=== PATIENT | female | born 1940 | race Caucasian/White ===

== ENCOUNTER 2020-07-07 06:40 | Emergency (ER) | payer MEDICARE, OTHER, SELFPAY ==
[2020-07-07 06:45] VITALS: BP 179/75; PULSE 80; RESP 16; TEMP 36.5; O2SAT 97; BMI 25.6
--- NOTE | 2020-07-07 07:08 | ED.ABDPAIN ---
HPI - Abdominal Pain General Chief Complaint: Abdominal Pain Stated Complaint: constipation Time Seen by Provider: 07/07/20 06:47 Source: patient Mode of arrival: Ambulatory Limitations: no limitations History of Present Illness HPI narrative: Patient is an 79-year-old female presents with abdominal pain. She says it woke her from her sleep around 3:00 a.m.. At this happens frequently when she is on vacation she gets constipated. She tried walking around drinking water the cramps just intensified. She even threw up a few times which she says is normal when she gets this way. Since she has arrived in the emergency department she has had 2 bowel movements and overall feels back to normal and her pain is completely gone. She is now requesting laxatives to help make sure she goes completely. She was not sure if she could take 1 after of cholecystectomy which she had in December. MD complaint: abdominal pain Onset (ago): hour(s) Pain Consistency: intermittent Location: diffuse Severity: mild Quality: cramping Radiation: none Migration to: no migration Relieving factors: bowel movement Review of Systems Review of Systems Narrative: GENERAL: Denies chills, fatigue, malaise, fever, sweats, travel HEENT: Denies sinus pain, ear pain, sore throat, difficulty swallowing, neck pain RESPIRATORY: Denies dyspnea, cough, wheezing, hemoptysis, sputum. CARDIOVASCULAR: Denies chest pain, palpitations, orthopnea, edema GASTROINTESTINAL: See HPI : Denies dysuria, frequency, incontinence, hematuria, urinary retention, flank pain. MUSCULOSKELETAL: Denies weakness, joint pain, or bony pain SKIN: No rash, no erythema, no pruritus NEUROLOGIC: Denies weakness, dizziness, headache, numbness, change in speech, confusion PSYCHIATRIC: No concerning psychosocial issues. 12 point review of systems is negative except for those stated above and HPI Patient History Medical History Hypothyroid (Acute) Social History Smoking Status: Never smoker Smoking Status: Never smoker Substance Use Type: does not use Exam Initial Vital Signs Initial Vital Signs: Vital Signs Temperature 97.7 F 07/07/20 06:45 Pulse Rate 80 07/07/20 06:45 Respiratory Rate 16 08/17/20 06:45 Blood Pressure 179/75 H 07/07/20 06:45 Pulse Oximetry 97 07/07/20 06:45 GENERAL: Alert well-appearing elderly female and in no acute distress. HEENT: Head atraumatic,EOMI, pupils reactive, face symmetric, moist mucous membranes CARDIOVASCULAR: Regular rate and rhythm without murmurs, rubs or gallops. RESPIRATORY: Breath sounds equal bilaterally, no wheezes rales or rhonchi. ABDOMEN: Soft, nontender. Normoactive bowel sounds all 4 quadrants. No guarding or rebound. EXTREMITIES: Normal range of motion, no clubbing or edema. Neurovascularly intact NEUROLOGICAL: Alert and oriented x4.Normal gait and speech. SKIN: Warm, dry, no laceration, no petechiae, no rashes or lesions. Course Orders Ordered: ED Orders 07/07/20 06:48 Complete Blood Count AUTO DIFF Stat Comprehensive Metabolic Panel Stat Lactate (Lactic Acid) Stat Lipase Stat Discontinued Medications Magnesium Citrate (Magnesium Citrate) 300 ml PO NOW ONE Stop: 07/07/20 07:19 Vital Signs Vital signs: Vital Signs - 8 hr 07/07/20 06:45 Temperature 97.7 F Pulse Rate 80 Respiratory Rate 16 Blood Pressure 179/75 H Pulse Oximetry 97 MDM - Abdominal Pain MDM Narrative Medical decision making narrative: I offered patient blood work and CT however she is refusing at this time. She says this is just like all the other times when she has been constipated. She has had 2 bowel movements in the ED and is feeling much better. Still requesting a laxative to go home with. I recommended that if her pain worsens to return to ED immediately I discussed all findings with the patient, Education has been performed regarding treatment plan, diagnosis, warning signs and symptoms and all concerns have been addressed. Verbally agree with and understood all of the above. Discharge Plan Departure Patient Disposition: Home Clinical Impression: Constipation Qualifiers: Constipation type: unspecified constipation type Qualified Code(s): K59.00 - Constipation, unspecified Instructions: DI for Constipation Activity Restrictions/Additional Instructions: *You have been diagnosed with constipation *What to do: Increased water intake walk, *Continue to take medications as directed Drink half bottle of magnesium citrate, if no bowel movement in a 1-2 hours then drink rest of bottle *Follow up with your primary care provider in 2-3 days *Return to ER if you should have increased abdominal pain persistent vomiting or any new, worsening or concerning symptoms
== END 2020-07-07 07:34 | disposition home or self-care (01) ==
PROVIDERS: Emergency Provider Emergency Medicine
DX: K59.00 Constipation, unspecified (principal)
CPT/HCPCS: 99281